=== PATIENT | female | born 2005 | race Asian ===

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

== ENCOUNTER 2023-05-21 16:13 | Emergency (ER) | payer OTHER ==
[2023-05-21 19:34] LABS: Bacteria/HPF None Seen HPF (None Seen); Bilirubin Negative (Negative); Blood, Urine Negative (Negative); CAUTI Indications for Culture Alt mental st,lethar; Clarity Extra Turbid (Clear); Glucose, Urine (Dipstick) Normal (Negative); Ketone, Urine Negative (Negative); Leukocyte Negative Leu/uL (Negative); Nitrite Negative (Negative); Protein, Urine (Dipstick) Negative (Neg-Trace); RBC/HPF 0-3 HPF (0-3); Squamous Epithelial 0-3 HPF (0-3); Urobilinogen Normal mg/dL (Less than 2); WBC/HPF None Seen HPF (0-3); pH, Urine 6.5 (5.0-9.0)
[2023-05-21 19:35] LABS: Pregnancy Test - Urine (BHCG) Negative (Negative); Pregu Control Background? CLEAR/WHITE (CLR/WHITE); Pregu Control Bar Appear? YES (CONTROL BAR)
[2023-05-21 19:36] LABS: Urine Culture Reflex No No
== END 2023-05-21 19:52 | disposition home or self-care (01) ==
LOC: ERS 16:13
DX: R41.2 Retrograde amnesia (principal); G40.909 Epilepsy, unspecified, not intractable, without status epilepticus; Z79.899 Other long term (current) drug therapy
CPT/HCPCS: 36416; 81001; 81025; 93005

== ENCOUNTER 2023-07-27 11:14 | Emergency (ER) | payer OTHER ==
[2023-07-27] MEDS ORDERED: levETIRAcetam 500 MG/5 ML VIAL ONE (11:26)
[2023-07-27 11:54] LABS: #Eosinphils 0.2 thou/uL (0.0-0.7); #Monocytes 0.7 thou/uL (0.11-0.59); #Neutrophils 4.1 thou/uL (1.40-6.50); %Basophils 0.5 % (0.0-1.0); %Eosinophils 2.9 % (0.0-10.0); %Lymphocytes 30.3 % (28.0-48.0); %Monocytes 9.5 % (0.0-4.0); %Neutrophils 56.1 % (31.0-61.0); Hematocrit 45.2 % (36.0-47.0); Hemoglobin 15.6 g/dL (12.0-16.0); Mean Corpuscular HGB CONC 34.5 g/dL (32.0-36.0); Mean Corpuscular Volume 92.8 fl (78.0-98.0); Mean Platelet Volume 9.3 fL (7.4-10.4); Platelet Count 288 10x3/uL (130-400); RBC Distribution Width 12.1 % (11.5-14.5); Red Blood Cell (RBC) Count 4.87 mill/uL (4.00-5.20); White Blood Cell (WBC) Count 7.4 10x3/uL (4.8-10.8)
[2023-07-27 12:09] LABS: Anion Gap 17 mmol/L (10-20); BUN (Urea Nitrogen) 16 mg/dL (7.0-18.7); Calc. Creatinine Clearance 0 mL/min (70-130); Calcium 9.1 mg/dL (7.8-10.44); Carbon Dioxide 16 mmol/L (22-29); Chloride 107 mmol/L (98-107); Estimated GFR 93; Glucose 207 mg/dL (70-105); Potassium 3.8 mmol/L (3.5-5.1); Sodium 136 mmol/L (136-145)
[2023-07-27 12:30] LABS: SARS-CoV-2 NAA Rapid Test DETECTED (NotDetected)
[2023-07-27 12:34] LABS: Bacteria/HPF 1+ HPF (None Seen); Bilirubin Negative (Negative); Blood, Urine Negative (Negative); CAUTI Indications for Culture Alt mental st,lethar; Clarity Turbid (Clear); Glucose, Urine (Dipstick) Normal (Negative); Ketone, Urine Trace mg/dL (Negative); Leukocyte 75 Leu/uL (Negative); Nitrite Negative (Negative); Pregnancy Test - Urine (BHCG) Negative (Negative); Pregu Control Background? CLEAR/WHITE (CLR/WHITE); Pregu Control Bar Appear? YES (CONTROL BAR); Protein, Urine (Dipstick) 30 mg/dL (Neg-Trace); RBC/HPF 0-3 HPF (0-3); Specific Gravity 1.024 (1.002-1.036); Specific Gravity, Urine 1.024 (1.002-1.036); Urobilinogen Normal mg/dL (Less than 2); pH, Urine 5.5 (5.0-9.0)
[2023-07-27 12:35] LABS: Urine Culture Reflex No No
[2023-07-27] MEDS ORDERED: Acetaminophen 500 MG TAB ONE (12:44)
== END 2023-07-27 14:37 | disposition home or self-care (01) ==
LOC: ERS 11:14
DX: U07.1 COVID-19 (principal); S01.512A Laceration without foreign body of oral cavity, initial encounter; G40.909 Epilepsy, unspecified, not intractable, without status epilepticus; X58.XXXA Exposure to other specified factors, initial encounter; Z79.899 Other long term (current) drug therapy
CPT/HCPCS: 36415; 71045; 80048; 81001; 81025; 85025; 87081; 87430; 93005; 96365; J1953

== ENCOUNTER 2023-10-21 17:33 | Emergency (ER) | payer OTHER ==
[2023-10-21 18:03] LABS: #Eosinphils 0.1 thou/uL (0.0-0.7); #Monocytes 0.5 thou/uL (0.11-0.59); #Neutrophils 9.3 thou/uL (1.40-6.50); %Basophils 0.2 % (0.0-1.0); %Eosinophils 0.5 % (0.0-10.0); %Lymphocytes 15.2 % (28.0-48.0); %Monocytes 4.4 % (0.0-4.0); %Neutrophils 79.5 % (31.0-61.0); Hemoglobin 15.4 g/dL (12.0-16.0); Mean Corpuscular HGB CONC 35.8 g/dL (32.0-36.0); Mean Corpuscular Hemoglobin 31.4 pg (25.0-35.0); Mean Corpuscular Volume 87.6 fl (78.0-98.0); Platelet Count 355 10x3/uL (130-400); Red Blood Cell (RBC) Count 4.91 mill/uL (4.00-5.20); White Blood Cell (WBC) Count 11.7 10x3/uL (4.8-10.8)
[2023-10-21 18:14] LABS: BHCG - Serum Negative (NEGATIVE); Pregs Control Background? CLEAR/WHITE (CLR/WHITE); Pregs Control Bar Appear? YES (CONTROL BAR)
[2023-10-21 18:22] LABS: ALT (SGPT) 88 U/L (8-55); AST (SGOT) 48 U/L (5-34); Albumin 4.8 g/dL (3.5-5.0); Alkaline Phosphatase 53 U/L (40-100); Anion Gap 18 mmol/L (10-20); BUN (Urea Nitrogen) 13 mg/dL (7.0-18.7); Bilirubin, Total 0.4 mg/dL (0.2-1.2); Calc. Creatinine Clearance 0 mL/min (70-130); Calcium 9.6 mg/dL (7.8-10.44); Carbon Dioxide 19 mmol/L (22-29); Chloride 105 mmol/L (98-107); Estimated GFR 76; Globulin 3.3 g/dL (2.4-3.5); Glucose 100 mg/dL (70-105); Lipase 27 U/L (8-78); Potassium 3.6 mmol/L (3.5-5.1); Protein, Total 8.1 g/dL (6.0-8.3); Sodium 138 mmol/L (136-145)
[2023-10-21] MEDS ORDERED: Ondansetron PF 4 MG/2 ML Vial ONE (19:28)
[2023-10-21 19:52] LABS: Acetaminophen Less than 10 mcg/mL (10.0-30.0); Alcohol Less than 10.0 mg/dL (Less than 10); Salicylate Less than 8.0 mg/dL (15.0-30.0)
[2023-10-21 21:05] LABS: Amphetamine Detected (NotDetected); Barbiturates Screen Not Detected (NotDetected); Benzodiazepine Screen Not Detected (NotDetected); Cocaine Metabolite Screen Not Detected (NotDetected); Methadone Not Detected (NotDetected); Methamphetamine Not Detected (NotDetected); Opiate Screen Not Detected (NotDetected); Oxycodone Screen Not Detected (NotDetected); Phencyclidine (PCP) Not Detected (NotDetected); THC/Cannabinoid Screen Not Detected (NotDetected); Tricyclic Screen Not Detected (NotDetected)
[2023-10-21 21:08] LABS: Bacteria/HPF None Seen HPF (None Seen); Bilirubin Negative (Negative); Blood, Urine Negative (Negative); CAUTI Indications for Culture Alt mental st,lethar; Clarity Turbid (Clear); Glucose, Urine (Dipstick) Normal (Negative); Ketone, Urine 20 mg/dL (Negative); Leukocyte Negative Leu/uL (Negative); Nitrite Negative (Negative); Protein, Urine (Dipstick) Negative (Neg-Trace); RBC/HPF None Seen HPF (0-3); Specific Gravity, Urine 1.016 (1.002-1.036); Squamous Epithelial 0-3 HPF (0-3); Urobilinogen Normal mg/dL (Less than 2); WBC/HPF 0-3 HPF (0-3)
[2023-10-21 21:10] LABS: Urine Culture Reflex No No
[2023-10-21 22:12] LABS: Lactic Acid 1.1 mmol/L (0.5-2.2)
[2023-10-21] MEDS ORDERED: levETIRAcetam 500 MG (5 mL) VIAL ONE (22:12)
[2023-10-21] MEDS ORDERED: Topiramate 100 MG TAB PO SCH (22:30)
[2023-10-21] MEDS ORDERED: Topiramate 25 MG TAB PO SCH (22:45)
== END 2023-10-21 22:40 | disposition home or self-care (01) ==
LOC: ERS 17:33
DX: R56.9 Unspecified convulsions (principal); R11.10 Vomiting, unspecified; E86.0 Dehydration
CPT/HCPCS: 36415; 70450; 80053; 80306; 80307; 81001; 83605; 83690; 84703; 85025; 93005; 96361; 96374; J1953; J2405

== ENCOUNTER 2025-05-12 08:18 | Emergency (ER) | payer OTHER ==
[2025-05-12 09:07] LABS: #Basophils 0.03 10x3/uL (0.0-0.2); #Eosinophils 0.12 10x3/uL (0.0-0.7); #Monocytes 0.60 10x3/uL (0.11-0.59); #Neutrophils 8.55 10x3/uL (1.40-6.50); %Basophils 0.3 % (0.0-1.0); %Eosinophils 1.0 % (0.0-10.0); %Lymphocytes 19.1 % (21.0-51.0); %Monocytes 5.2 % (0.0-10.0); %Neutrophils 73.9 % (42.0-75.0); Hematocrit 35.1 % (36.0-47.0); Hemoglobin 12.1 g/dL (12.0-16.0); Mean Corpuscular Hemoglobin 31.5 pg (27.0-31.0); Mean Corpuscular Volume 91.4 fL (78.0-98.0); Platelet Count 242 10x3/uL (130-400); Red Blood Cell (RBC) Count 3.84 mill/uL (4.20-5.40); White Blood Cell (WBC) Count 11.57 10x3/uL (4.8-10.8)
[2025-05-12 09:28] LABS: ALT (SGPT) 8 U/L (Less than 34); AST (SGOT) 26 U/L (11-34); Albumin 3.3 g/dL (3.1-4.5); Alkaline Phosphatase 40 U/L (40-110); Anion Gap 15 mmol/L (10-20); BUN (Urea Nitrogen) 9 mg/dL (7.0-18.7); Bilirubin, Total 0.2 mg/dL (0.3-1.2); Calc. Creatinine Clearance 0 mL/min (70-130); Calcium 8.6 mg/dL (7.8-10.44); Carbon Dioxide 19 mmol/L (22-29); Chloride 107 mmol/L (98-107); Globulin 2.9 g/dL (2.4-3.5); Glucose 96 mg/dL (70-105); Potassium 4.1 mmol/L (3.5-5.1); Sodium 137 mmol/L (136-145)
== END 2025-05-12 11:10 | disposition home or self-care (01) ==
LOC: ERS 08:18
DX: O99.352 Diseases of the nervous system complicating pregnancy, second trimester (principal); G40.909 Epilepsy, unspecified, not intractable, without status epilepticus; Z79.899 Other long term (current) drug therapy; Z3A.23 23 weeks gestation of pregnancy
CPT/HCPCS: 80053; 85025; 93005; 99284